=== PATIENT | male | born 2005 | race Caucasian/White ===

== ENCOUNTER 2024-06-21 03:58 | Emergency (ER) | payer OTHER ==
[2024-06-21 04:10] VITALS: BP 133/80; PULSE 64; RESP 18; TEMP 98.5; BMI 24.0
[2024-06-21] MEDS ORDERED: FAMOTIDINE 20 MG TABLET ONE (04:33)
[2024-06-21] MEDS ORDERED: MAG HYDROX/AL HYDROX/SIMETH 30 ML UNIT-DOSE CUP ONE (04:33)
[2024-06-21] MEDS ORDERED: ACETAMINOPHEN 325 MG TABLET (FP) ONE (04:33)
[2024-06-21] MEDS: FAMOTIDINE 20 MG TABLET PO ONE (04:34)
[2024-06-21] MEDS: MAG HYDROX/AL HYDROX/SIMETH -MYLANTA- ORAL SUSPENSION PO ONE (04:34)
[2024-06-21] MEDS: ACETAMINOPHEN 500 MG TABLET (FP) PO ONE (04:34)
== END 2024-06-21 05:48 | disposition home or self-care (01) ==
LOC: JER 03:58
DX: R07.89 Other chest pain (principal); K21.9 Gastro-esophageal reflux disease without esophagitis; R00.2 Palpitations
CPT/HCPCS: 93005; 93010; 99283-25

== ENCOUNTER 2024-06-22 18:19 | Emergency (ER) | payer OTHER ==
[2024-06-22 18:27] VITALS: BP 133/81; PULSE 68; RESP 18; TEMP 97.4; BMI 24.5
[2024-06-22] MEDS ORDERED: MAG HYDROX/AL HYDROX/SIMETH 30 ML UNIT-DOSE CUP ONE (19:12)
[2024-06-22] MEDS ORDERED: IBUPROFEN 600 MG TABLET (FP) PO ONE (19:12)
[2024-06-22] MEDS ORDERED: FAMOTIDINE 20 MG TABLET ONE (19:12)
[2024-06-22] MEDS: FAMOTIDINE 20 MG TABLET PO ONE (19:15)
[2024-06-22] MEDS: IBUPROFEN 600 MG TABLET (FP) PO ONE (19:15)
[2024-06-22] MEDS: MAG HYDROX/AL HYDROX/SIMETH 30 ML UNIT-DOSE CUP PO ONE (19:15)
== END 2024-06-22 20:21 | disposition home or self-care (01) ==
LOC: JER 18:19
DX: R07.89 Other chest pain (principal)
CPT/HCPCS: 71046-TC-FY; 93005; 93010; 99284-25

== ENCOUNTER 2024-07-11 13:01 | Emergency (ER) | payer OTHER ==
[2024-07-11 13:06] VITALS: BP 134/75; PULSE 81; RESP 18; TEMP 97.8; BMI 17.7
== END 2024-07-11 15:52 | disposition home or self-care (01) ==
LOC: JERFT 13:01
DX: R06.02 Shortness of breath (principal); R09.81 Nasal congestion; U07.1 COVID-19
CPT/HCPCS: 0241U-QW; 71046-TC-FY; 99284-25

== ENCOUNTER 2024-08-17 21:55 | Emergency (ER) | payer OTHER ==
[2024-08-17 22:04] VITALS: BP 123/82; PULSE 58; RESP 18; TEMP 97.5; BMI 24.0
[2024-08-17] MEDS ORDERED: LIDOCAINE 4% PATCH TP ONE (22:28)
[2024-08-17] MEDS ORDERED: ACETAMINOPHEN 500 MG TABLET (FP) ONE (22:28)
[2024-08-17 22:47] LABS: HEMATOCRIT 45.6 % (35.4-49); HEMOGLOBIN 15.9 GM/dL (11.7-16.9); MCH 29.1 pg (25.7-33.7); MEAN CELL VOLUME 83.2 fl (80-96); MEAN PLT VOLUME 8.2 fl (7.5-11.1); PLATELET COUNT 249 10^3/uL (134-434); RBC 5.48 M/mm3 (4.00-5.60); RDW 13.5 % (11.9-15.9)
[2024-08-17] MEDS: ACETAMINOPHEN 1000 MG/100 ML BAG IVPB ONE (22:51)
[2024-08-17] MEDS: LIDOCAINE 4% PATCH TP ONE (22:52)
[2024-08-17] MEDS ORDERED: KETOROLAC TROMETHAMINE 15 MG/ML VIAL ONE (22:52)
[2024-08-17] MEDS: KETOROLAC TROMETHAMINE 15 MG/ML VIAL IVPUSH ONE (22:52)
[2024-08-17] MEDS: LIDOCAINE PATCH REMOVAL MC SCH (22:52)
[2024-08-17 23:27] LABS: POTASSIUM 3.8 mmol/L (3.5-5.1)
[2024-08-17 23:29] LABS: BLOOD UREA NITROGEN 16.7 mg/dL (7-18)
[2024-08-17 23:30] LABS: ALBUMIN 4.1 g/dl (3.4-5.0)
[2024-08-17 23:32] LABS: CREATININE 1.1 mg/dL (0.55-1.3)
[2024-08-17 23:34] LABS: BILIRUBIN,TOTAL 0.7 mg/dL (0.2-1); TOT PROT 7.4 g/dl (6.4-8.2)
== END 2024-08-17 23:49 | disposition home or self-care (01) ==
LOC: JER 21:55
PROC: 3E033NZ Introduction of Analgesics, Hypnotics, Sedatives into Peripheral Vein, Percutaneous Approach (ICD-10-PCS; principal; 2024-08-17)
PROC: 3E0333Z Introduction of Anti-inflammatory into Peripheral Vein, Percutaneous Approach (ICD-10-PCS; 2024-08-17)
DX: R07.89 Other chest pain (principal); R00.1 Bradycardia, unspecified; Z20.822 Contact with and (suspected) exposure to COVID-19
CPT/HCPCS: 0241U-QW; 36415; 71046-TC-FY; 80053; 84484; 85027; 93005; 93010; 99285-25; J0131